=== PATIENT | female | born 1995 | race Caucasian/White ===

== ENCOUNTER 2016-10-26 07:56 | Emergency (ER) | payer SELFPAY ==
--- NOTE | 2016-10-26 16:10 | ER ---
ADMIT: 10/26/2016 RM/LOC: ER [facility] MR#: [id number] [id number] [place], [place] [id number] EMMA PEREZ [address] [place] [address] Emergency Room Report SEX: F AGE: 21 : 1995 DATE: 10/26/2016 TIME: 0756 hours. Please refer to my T-sheet for complete H and P. Briefly, patient is 21-year-old who comes in with abdominal pain that started this morning. Kind of diffusely across her abdomen, rates it 8/10. She has been told she may have a history of endometriosis, she has never had this documented. She does not have a primary she sees, although she is wanting to go to [address] No vomiting. She did feel like she could eat. She says it is kind of diffuse. No pain or burning with urination. Says no way she can be . PHYSICAL EXAMINATION: VITAL SIGNS: Her blood pressure 134/74, pulse 86, respirations 16, temp 98, and sat 99%. GENERAL: She is in no acute distress. HEENT: Grossly normal. ABDOMEN: Soft, diffusely tender in the lower quadrant. No rebound. No guarding. Nondistended. She does have a little bit of discomfort at [place] point, but does not localize there. SKIN: No rash. EMERGENCY DEPARTMENT COURSE: I gave her Toradol 60 IM. Her pain went down to almost a 0, she felt much better. Her CBC was normal. Chemistries normal. Urine normal except 1+ blood, urine negative. I had a long discussion with her. I talked to her what to watch for appendicitis, she understood this, but I do not think she has this at this point: 1. She does not localize at [place]ney[place]. 2. She does not have a fever. 3. Her white count is normal. 4. She has been not vomiting and actually is hungry. PLAN: Follow up as an outpatient. [facility] [address] t.[address] p.[address]., I gave her script for #30. Jonah Car MD/ kimmy JOB #: [id number] CC: Jonah Car MD, Attending Physician Ruben Jovel MD, Family Physician
== END 2016-10-26 09:33 | disposition home or self-care (01) ==
LOC: ER 07:56
DX: R10.84 Generalized abdominal pain (principal); Z88.0 Allergy status to penicillin

== ENCOUNTER 2017-01-16 16:36 | Emergency (ER) | payer SELFPAY ==
--- NOTE | 2017-01-20 08:27 | ER ---
ADMIT: 01/16/2017 RM/LOC: ER [facility] MR#: [id number] [id number] [place], [place] [address] EMMA PEREZ [address] [place] [address] Emergency Room Report SEX: F AGE: 21 : 1995 DATE: 01/16/2017 ADDENDUM: This is a 21-year-old white female coming in with headache. She is on antibiotics for possibly an upper respiratory infection. She has no nausea, no vomiting. She has no neurological problems. This is muscle tension headache, I do believe. I gave her Toradol 60 mg IV. I put her on some Fioricet if she needs it and then she needs to follow up as needed. CONDITION ON DISCHARGE: Improved. Tamir Lopez MD/ kimmy JOB #: [id number] CC: Tamir Lopez MD, Attending Physician
== END 2017-01-16 17:45 | disposition home or self-care (01) ==
LOC: ER 16:36
DX: G44.209 Tension-type headache, unspecified, not intractable (principal); Z79.899 Other long term (current) drug therapy